=== PATIENT | male | born 1980 | race African-American/Black ===

== ENCOUNTER 2021-06-12 17:02 | Emergency (ER) | payer OTHER ==
[2021-06-12 17:09] VITALS: BP 129/72; PULSE 72; TEMP 98; BMI 29.0
[2021-06-12] MEDS ORDERED: DIPHTH,PERTUSS(ACELL),TET 0.5 ML DISP.SYRIN IM ONE ×2 (18:03→18:06)
== END 2021-06-12 18:20 | disposition home or self-care (01) ==
LOC: JERFT 17:02
PROC: 0HQFXZZ Repair Right Hand Skin, External Approach (ICD-10-PCS; principal; 2021-06-12)
PROC: 3E0234Z Introduction of Serum, Toxoid and Vaccine into Muscle, Percutaneous Approach (ICD-10-PCS; 2021-06-12)
DX: S61.011A Laceration without foreign body of right thumb without damage to nail, initial encounter (principal); W25.XXXA Contact with sharp glass, initial encounter
CPT/HCPCS: 73130-TC-RT-FY; 90715; 99283-25

== ENCOUNTER 2021-06-19 14:10 | Emergency (ER) | payer OTHER ==
[2021-06-19 14:30] VITALS: BP 112/75; PULSE 87; TEMP 98; BMI 29.0
== END 2021-06-19 15:48 | disposition home or self-care (01) ==
LOC: JERFT 14:10 → JER 14:10 → JERFT 15:48
DX: S61.012A Laceration without foreign body of left thumb without damage to nail, initial encounter (principal); Y99.9 Unspecified external cause status; Z48.02 Encounter for removal of sutures
CPT/HCPCS: 99281-25